=== PATIENT | female | born 1965 ===

== ENCOUNTER 2024-09-21 06:23 | Day surgery (SDC) | payer BC, SELFPAY | END 2024-09-21 14:26 | disposition home or self-care (01) | LOC: GI 06:23 | PROVIDERS: ATTENDING PHYSICIAN Internal Medicine Gastroenterology | DX: Z12.11 Encounter for screening for malignant neoplasm of colon (principal); K57.30 Diverticulosis of large intestine without perforation or abscess without bleeding; R13.14 Dysphagia, pharyngoesophageal phase; R12 Heartburn; K31.819 Angiodysplasia of stomach and duodenum without bleeding; R19.7 Diarrhea, unspecified; Z83.719 Family history of colon polyps, unspecified | CPT/HCPCS: 45380; 43239; 88305 ==